=== PATIENT | male | born 1975 | race Native Hawaiian/Other Pacific Islander ===

== ENCOUNTER 2018-09-26 10:37 | Outpatient (CLI) | payer OTHER ==
[~2018-09-26 10:37] MED LIST: ACET5TAB36 PO; ALBU90AE13 INH; LORA10TA3 PO; SIMV20TA2 PO
== END 2018-09-26 23:34 | disposition home or self-care (01) ==
LOC: RAD 10:37
DX: M79.672 Pain in left foot (principal)

== ENCOUNTER 2019-05-28 18:10 | Emergency (ER) | payer OTHER ==
[~2019-05-28] VITALS: Ht 182.9 cm; Wt 113.4 kg
[2019-05-28 19:36] VITALS: BP 115/63; TEMP 98.4
== END 2019-05-28 19:36 | disposition home or self-care (01) ==
LOC: ED 18:10
PROC: 0HQGXZZ Repair Left Hand Skin, External Approach (ICD-10-PCS; principal; 2019-05-28)
DX: S61.412A Laceration without foreign body of left hand, initial encounter (principal); W26.9XXA Contact with unspecified sharp object(s), initial encounter
CPT/HCPCS: 90471; 90715; 96372; 99283; J0696; J7040

== ENCOUNTER 2022-06-07 13:27 | Emergency (ER) | payer OTHER ==
[~2022-06-07] VITALS: Ht 182.9 cm; Wt 104.3 kg
[2022-06-07 13:27] VITALS: BP 133/85; TEMP 98.2
== END 2022-06-07 15:00 | disposition home or self-care (01) ==
LOC: ED 13:27
PROC: 0HQEXZZ Repair Left Lower Arm Skin, External Approach (ICD-10-PCS; principal; 2022-06-07)
DX: S51.812A Laceration without foreign body of left forearm, initial encounter (principal); X58.XXXA Exposure to other specified factors, initial encounter; Y92.89 Other specified places as the place of occurrence of the external cause
CPT/HCPCS: 99284; J2001